=== PATIENT | female | born 2000 | race Caucasian/White ===

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

== ENCOUNTER 2021-03-09 22:25 | Outpatient (CLI) | payer OTHER | END 2021-03-09 23:44 | disposition home or self-care (01) | LOC: GENOP 22:25 | DX: O42.912 Preterm premature rupture of membranes, unspecified as to length of time between rupture and onset of labor, second trimester (principal); O26.852 Spotting complicating pregnancy, second trimester; Z3A.24 24 weeks gestation of pregnancy | CPT/HCPCS: 81001; 83518; G0463 ==

== ENCOUNTER → 2021-04-18 | Outpatient (CLI) | payer OTHER ==
[~2021-04-18] VITALS: Ht 172.7 cm; Wt 59.9 kg
== END ==
LOC: OPSV 10:00
DX: O99.019 Anemia complicating pregnancy, unspecified trimester (principal); D64.9 Anemia, unspecified
CPT/HCPCS: 96365; J1756

== ENCOUNTER → 2021-04-25 | Outpatient (CLI) | payer OTHER ==
[~2021-04-25] VITALS: Ht 172.7 cm; Wt 59.9 kg
== END ==
LOC: OPSV 10:00
DX: O99.019 Anemia complicating pregnancy, unspecified trimester (principal); D64.9 Anemia, unspecified; Z3A.00 Weeks of gestation of pregnancy not specified
CPT/HCPCS: 96365; J1756

== ENCOUNTER → 2021-05-03 | Outpatient (CLI) | payer OTHER | LOC: GENOP 11:10 | DX: O47.03 False labor before 37 completed weeks of gestation, third trimester (principal); O34.219 Maternal care for unspecified type scar from previous cesarean delivery; Z87.891 Personal history of nicotine dependence; O99.012 Anemia complicating pregnancy, second trimester; D64.9 Anemia, unspecified; O46.92 Antepartum hemorrhage, unspecified, second trimester; O99.342 Other mental disorders complicating pregnancy, second trimester; F32.A Depression, unspecified; Z3A.33 33 weeks gestation of pregnancy | CPT/HCPCS: 96360; 96361; J7120 ==

== ENCOUNTER → 2021-06-07 | Outpatient (CLI) | payer OTHER ==
[2021-06-07 12:49] LABS: HEMOGLOBIN 10.1 gm/dl (12.3-15.3); RED BLOOD COUNT 4.44 M/UL (4.00-5.10); WHITE BLOOD COUNT 10.2 K/UL (4.5-11.0)
== END ==
LOC: GENOP 11:34
PROVIDERS: Obstetrics & Gynecology
DX: Z01.812 Encounter for preprocedural laboratory examination (principal)
CPT/HCPCS: 36415; 81001; 85025

== ENCOUNTER 2021-06-09 05:47 | Inpatient (IN) | payer OTHER ==
[~2021-06-09] VITALS: Ht 152.4 cm; Wt 66.7 kg
[2021-06-09] MEDS ORDERED: VITAMIN C 500500 MG PO (06:23)
[2021-06-09] MEDS ORDERED: FERROUS FUMARA324 MG PO (06:23)
[2021-06-09] MEDS ORDERED: DOCUSATE SODIU100 MG PO (07:23)
[2021-06-09] MEDS ORDERED: IBUPROFEN600 MG PO (07:23)
[2021-06-09] MEDS ORDERED: HYDROCODON-ACE1 EAC4 PO (07:23)
[2021-06-10 01:59] LABS: HEMOGLOBIN 10.1 gm/dl (12.3-15.3)
[2021-06-10] MEDS ORDERED: IBUPROFEN800 MG PO (18:08)
[2021-06-10] MEDS ORDERED: PERCOCET 5/325 T1 EA PO (18:08)
== END 2021-06-11 14:53 | disposition home or self-care (01) | DRG 788 ==
LOC: OB 05:47
PROVIDERS: ADMIT Obstetrics & Gynecology
PROC: 10D00Z1 Extraction of Products of Conception, Low, Open Approach (ICD-10-PCS; principal; 2021-06-09 10:45)
DX: O34.211 Maternal care for low transverse scar from previous cesarean delivery (principal); N85.8 Other specified noninflammatory disorders of uterus; Z3A.38 38 weeks gestation of pregnancy; Z37.0 Single live birth; D64.9 Anemia, unspecified; Z82.49 Family history of ischemic heart disease and other diseases of the circulatory system; Z80.9 Family history of malignant neoplasm, unspecified; Z81.8 Family history of other mental and behavioral disorders; Z20.822 Contact with and (suspected) exposure to COVID-19; O99.02 Anemia complicating childbirth
CPT/HCPCS: 36415; 82800; 85014; 85018; 90715; C9113; J0690; J1170; J2370; J2550; J2590; J7120

== ENCOUNTER 2022-02-22 11:49 | Emergency (ER) | payer OTHER ==
[~2022-02-22 11:49] MED LIST changes: +DOCUSATE SODIU100 MG PO; +FERROUS FUMARA324 MG PO; +HYDROCODON-ACE1 EAC4 PO; +IBUPROFEN800 MG PO; +PERCOCET 5/325 T1 EA PO; +VITAMIN C 500500 MG PO
[2022-02-22 12:37] LABS: HEMOGLOBIN 15.2 gm/dl (12.3-15.3); RED BLOOD COUNT 5.75 M/UL (4.00-5.10); WHITE BLOOD COUNT 12.4 K/UL (4.5-11.0)
[2022-02-22 13:03] LABS: BUN/CREATININE RATIO 16 (0-10)
[2022-02-22] MEDS ORDERED: OMNICEF 300 MG300 MG PO (14:34)
== END 2022-02-22 14:45 | disposition home or self-care (01) ==
LOC: ER1 11:49
PROVIDERS: Physician Assistant
DX: K80.80 Other cholelithiasis without obstruction (principal); I88.0 Nonspecific mesenteric lymphadenitis; F17.290 Nicotine dependence, other tobacco product, uncomplicated
CPT/HCPCS: 80053; 81001; 84703; 85025; 87077; 87086; 87186; 96374; 96375; 99284; J1885; J2405